=== PATIENT | female | born 1975 | race Caucasian/White ===

== ENCOUNTER 2021-08-11 22:11 | Emergency (ER) | payer BC, MEDICAID, OTHER ==
[~2021-08-11] VITALS: Ht 172 cm; Wt 140.0 kg
[~2021-08-11 22:11] MED LIST: ALBU17AE3; ONDA8TAB6; PREN1TAB39
[2021-08-11] MEDS ORDERED: morphine INJ 10 MG/ML 1ML (SYR OR VIAL) IM STA (22:35)
[2021-08-11] MEDS ORDERED: ONDANSETRON 4 MG (ZOFRAN) ORAL DISSOLVE TAB PO STA (22:35)
[2021-08-11] MEDS ORDERED: KETOROLAC 60 MG/2 ML VIAL IM ONE (22:45)
--- NOTE | 2021-08-11 22:58 | ED Back Pain ---
General Chief Complaint: Back Problems Stated Complaint: LOWER BACK PAIN Source of Information: Patient Exam Limitations: No Limitations History of Present Illness Date Seen by Provider: Aug 11, 2021 Time Seen by Provider: 22:15 Initial Comments MidlinePatient is a 46-year-old female with history of sciatica who presents with acute onset of upper back pain starting several hours prior to ED arrival. Patient denies trauma or repetitive strain injury. Reports pain is sharp worse with movement is moderate to severe. Is unrelieved with rest, Aspercreme or Tylenol. Pain does radiate on occasion to left leg. Currently denies radiation. No extremity weakness or loss of sensation. No other acute symptoms or complaints. Location: Lumbar Spine, Paraspinous Muscles Timing/Duration: 4-6 Hours Severity: Moderate Radiation: Other Method of Injury: Other Modifying Factors: Improves With Other Associated Symptoms: other Allergies and Home Medications Allergies Coded Allergies: No Known Allergies (Verified Allergy, Unknown, 01/03/07) Uncoded Allergies: NKDA (Allergy, Mild, 10/15/08) Patient Home Medication List Home Medication List Reviewed: Yes Albuterol (Proventil) 17 Gm Inh, (Reported) Entered as Reported by: TONIA SIMMONS on 10/15/08 1205 Ondansetron Hcl (Zofran) 8 Mg Tablet, (Reported) Entered as Reported by: TONIA SIMMONS on 10/15/08 1205 Vits W-Ca,Fe,Fa(<1MG) () 1 Each Tablet, (Reported) Entered as Reported by: TONIA SIMMONS on 10/15/08 1206 Review of Systems Constitutional: no symptoms reported EENTM: no symptoms reported Respiratory: no symptoms reported Cardiovascular: no symptoms reported Gastrointestinal: no symptoms reported Genitourinary: no symptoms reported Musculoskeletal: no symptoms reported Skin: no symptoms reported Psychiatric/Neurological: No Symptoms Reported Past Rlvquoe-Yszktt-Lqgoxo Hx Patient Social History Tobacco Use?: Yes Use of E-Cig and/or Vaping dev: No Substance use?: No Alcohol Use?: No Pt feels they are or have been: No Past Medical History Last Menstrual Period: Jul 21, 2021 Reproductive Disorders: Yes (CERVICLE DYSPLASIA,LASER OBLATION 7 YRS.AGO) Physical Exam Vital Signs Vital Signs - First Documented 08/11/21 22:15 Temp 36.8 Pulse 102 Resp 14 B/P (MAP) 140/80 (100) Pulse Ox 98 O2 Delivery Room Air Capillary Refill : Less Than 3 Seconds Height, Weight, BMI Height: '" Weight: lbs. oz. kg; 47.00 BMI Method: General Appearance: Moderate Distress HEENT: PERRL/EOMI, Normal ENT Inspection Respiratory: Lungs Clear Gastrointestinal: Non Tender, Soft Back: No CVA Tenderness Neurologic/Psychiatric: Alert, Oriented x3, Normal Mood/Affect, er tech II-XII Norm as Tested Progress/Results/Core Measures Results/Orders My Orders Orders - DAWN RICH DO Morphine Injection (Morphine Injection (08/11/21 22:35) Ketorolac Injection (Toradol Injection) (08/11/21 22:45) Ondansetron Oral Dissolve Tab (Zofran (08/11/21 22:35) Medications Given in ED Current Medications Medications Dose Ordered Sig/Lori Route Start Time Stop Time Status Last Admin Dose Admin Ketorolac Tromethamine 60 mg ONCE ONCE IM 08/11/21 22:45 08/11/21 22:46 DC 08/11/21 22:46 60 MG Vital Signs/I&O 08/11/21 22:15 Temp 36.8 Pulse 102 Resp 14 B/P (MAP) 140/80 (100) Pulse Ox 98 O2 Delivery Room Air Blood Pressure Mean: 100 Departure Communication (Admissions) Reproducible back pain without neurologic deficit. Pain improved with treatment. Recommendations are supportive care with PCP follow-up. Impression Primary Impression: Acute lumbar myofascial strain Disposition: 01 HOME, SELF-CARE Condition: Stable Departure-Patient Inst. Decision time for Depature: 22:58 Referrals: NITESH CORTEZ MD (PCP/Family) Primary Care Physician Patient Instructions: Muscle Strain ED Add. Discharge Instructions: Please go home rest and take newly prescribed medications as directed. All discharge instructions reviewed with patient and/or family. Voiced unders tanding. Scripts Cyclobenzaprine HCl (Cyclobenzaprine HCl) 10 Mg Tablet 10 MG PO TID, #30 TAB Prov: DAWN RICH DO 08/11/21 Hydrocodone/Acetaminophen (Hydrocodone-Acetamin 5-325 mg) 1 Each Tablet 1 TAB PO Q4H PRN for PAIN-MODERATE (5-7), #20 TAB Prov: DAWN RICH DO 08/11/21 DAWN RICH DO Aug 11, 2021 22:58
[2021-08-11] MEDS ORDERED: CYCL10TA25 PO (23:01)
[2021-08-11] MEDS ORDERED: ACHD5005 PO (23:01)
[2021-08-11 23:08] VITALS: BP 131/71
== END 2021-08-11 23:10 | disposition home or self-care (01) ==
LOC: EDUNIT# 22:11 → ER FS 22:13
DX: S39.012A Strain of muscle, fascia and tendon of lower back, initial encounter (principal); Z72.0 Tobacco use; X58.XXXA Exposure to other specified factors, initial encounter
CPT/HCPCS: 99284

== ENCOUNTER 2021-12-31 12:33 | Emergency (ER) | payer OTHER ==
[~2021-12-31] VITALS: Ht 175 cm; Wt 139.0 kg
[~2021-12-31 12:33] MED LIST changes: +ACHD5005 PO; +CYCL10TA25 PO
[2021-12-31] MEDS ORDERED: KETOROLAC 60 MG/2 ML VIAL IM STA (12:46)
[2021-12-31 12:47] VITALS: BP 144/90
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
--- NOTE | 2021-12-31 13:06 | Diagnostic Imaging Report ---
INDICATION: Fall with right foot pain. AP, oblique and lateral views of the right foot are obtained. No acute fracture or malalignment is identified. There is a prominent posterior calcaneal enthesophyte. There is no lytic or sclerotic lesion. No radiopaque foreign bodies identified. IMPRESSION: No acute osseous abnormality is identified, however note is made of prominent enthesophyte near the Achilles tendon insertion. Dictated by: Dictated on workstation # [id number]
--- NOTE | 2021-12-31 13:07 | Diagnostic Imaging Report ---
INDICATION: Right ankle pain. AP, oblique, and lateral views of the right ankle are obtained. No fracture or acute bony abnormality is seen. There is prominent posterior calcaneal spurring and moderate plantar calcaneal spurring. IMPRESSION: No acute abnormality of the right ankle. Dictated by: Dictated on workstation # [id number]
== END 2021-12-31 14:00 | disposition home or self-care (01) ==
LOC: EDUNIT# 12:33 → ER FS 12:35
DX: S80.02XA Contusion of left knee, initial encounter (principal); M76.61 Achilles tendinitis, right leg; M77.9 Enthesopathy, unspecified; M79.671 Pain in right foot; E66.9 Obesity, unspecified; Z68.42 Body mass index [BMI] 45.0-49.9, adult; W18.30XA Fall on same level, unspecified, initial encounter; Y93.02 Activity, running; Y92.009 Unspecified place in unspecified non-institutional (private) residence as the place of occurrence of the external cause
CPT/HCPCS: 73610; 73630; 99282